=== PATIENT | female | born 1985 | race Caucasian/White ===

== ENCOUNTER 2017-08-30 13:21 | Inpatient (IN) | payer OTHER ==
[~2017-08-30] VITALS: Ht 165.1 cm; Wt 91.2 kg
[~2017-08-30 13:21] MED LIST: fentaNYL-PF 50 mCg/mL 2 mL Inj ONE
[2017-08-30] MEDS ORDERED: Lactated Ringer's 1,000 ML IV PRN (14:21)
[2017-08-30] MEDS ORDERED: Carboprost 250 mCg/mL Inj IM PRN (14:25)
[2017-08-30] MEDS ORDERED: Methylergonovine 0.2 mg/mL Inj IM PRN (14:25)
[2017-08-30] MEDS ORDERED: Sodium Chloride LOK Flush 10 mL Syringe IVFLUSH PRN (14:25)
[2017-08-30] MEDS ORDERED: Ondansetron 2 mg/mL 2 mL Inj IVPUSH PRN (14:25)
[2017-08-30] MEDS ORDERED: Oxytocin 10 Unit/mL Inj IM PRN (14:25)
[2017-08-30] MEDS ORDERED: Hemorrhage Kit, Post Partum XX ONE (14:25)
[2017-08-30] MEDS ORDERED: Oxytocin 30 Units/500 mL LR 30 UNITS in IV Premix 1 EACH IV PRN ×2 (14:25→18:50)
[2017-08-30] MEDS ORDERED: fentaNYL-PF 50 mCg/mL 2 mL Inj IVPUSH PRN (14:25)
[2017-08-30 14:42] LABS: Mean Corpuscular Hemoglobin 30.1 pg (27.0-35.0); Mean Corpuscular Volume 86.2 fL (81-100)
--- NOTE | 2017-08-30 17:33 | PCM.HPOB ---
Subjective Date of Service: Aug 30, 2017 Referring Provider: Admitting Physician: Mariusz Guerrero MD Primary Care Physician: Nopcp Attending Physician: Mariusz Guerrero MD Chief Complaint SROM at 20 weeks and 1 day. History of Present History of Present Illness This is a pleasant 32-year-old 001 at 40 weeks and 1 day with EDC of with dating by first trimester reportedly at 8 week ultrasound done at [facility] (ultrasound was not available for review in [facility] or web ambassador), who presented to [facility] with SROM with leakage of clear fluid at 11:15 on 2016. She was GBS negative. SVE was 2.0 cm, 50% effaced, and -2 with mid position and a Farmer score of 6 at 1332 on 08/30/2017. heart tones 150, moderate variability, positive accelerations, negative decelerations, category 1. Patient's OB history includes history of depression and a C- section secondary to breech in 2006. Patient wishes for trial of labor after . Competitions in this include a abnormal 1 hour glucose tolerance test at [facility] on 06/10/2017 with a normal three-hour glucose tolerance test. Patient had 2 episodes of -induced hypertension at 38 and 39 weeks. Patient has history of passing the blood clotted 8 weeks gestation however no other bleeding since that time. Patient had a prepregnancy BMI of 29 and a current BMI of 33. She is O+ antibody screen negative, GBS negative, rubella immune, Varicella immune, syphilis nonreactive, hepatitis B negative, HIV negative. Patient had a TB test that was nonreactive. Current allergies include morphine. Mother denied headaches, fever, sweats, nausea, vomiting, vision changes, slurred speech, right upper quadrant pain. OB History: (3), Para (1011) Past Medical History Obstetrical History: after breech 2006 History depression Gynecologic History: No Pap on record in [facility] per patient Pap in reportedly of 2016 that was normal. History 1 prior abnormal Pap with colposcopy that was normal, no history of HPV testing. History of depression. Medical History: No prior chronic medical history Surgical History: 2006 Breast reduction surgery 2012 Social History: Denies tobacco, rarely drank alcohol prior to , no drugs Hx Tobacco Use: No Hx Alcohol Use: Yes (rare and prior to ) Hx Substance Use: No Past Family History Family History Father with history of hypertension, pacemaker Living Arrangement: with Family Genetic Screening/Counseling Genetic Screening/Counseling: Unknown Baby father-had child w defect: No Review of Systems Constitutional: Y: Change of appitite, Chills, Fever, Pain Eyes: Denies: Blurred Vision, Double Vision Cardiovascular: Denies: Chest Pain, SOB while laying flat Respiratory: Denies: Cough, Pleuritic Chest Pain, SOB with Exertion Gastrointestinal: Denies: Abdominal Pain, Diarrhea, Nausea, Vomiting Genitourinary: Denies: Dysuria, Hematuria Musculoskeletal: Denies: Swelling Skin/Breasts: Denies: Discharge, Rash Skin: Denies: Bruising, Rash Neurological: Denies: Dizziness, Numbness, Seizures Psychologic: Denies: Agitation Medications Home medications vitamin Prevacid daily Allergy Coded Allergies: morphine (Verified Allergy, Unknown, HIVES, SKIN RASH, 08/30/17) Exam Vital Signs BP 135/83, HR 102, RR 16, T 36.7 Celsius, Exam FHT 150, moderate variability, positive accelerations, negative decelerations, category 1. Objective Oriented 3, no acute distress, speaking full sentences, and comfortably in bed. Constitutional: Well-developed, Well-nourished HEENT: Atraumatic, PERRLA, Scleral Anicteric, Mucous Membr Moist/[place] Lungs: Clear to Auscultation, Normal Air Movement Heart: Exam Unremarkable, Regular Rate/Rhythm, Normal S1, Normal S2, No Murmurs /Rubs/Gallops Abdomen: Gravid Lymphatic: Normal: Neck Palpation of Nodes Extremities: Pulses Palpable x4, Warm, No Edema Neurological/Psychiatric: Alert, Oriented X3, Cooperative, No Acute Distress Neuro: Grossly Neurologically Intact, Reflexes 2+, No Clonus noted, Strength at 5/5 x4 ext Labs/Diagnostics Maternal Blood Type: O (positive) Antibody Screen: negative Group B Strep Results: Negative Previous Infant with GBS: No Rubella: Immune Lab History: Positive for: Hx Chicken Pox, Negative for: Hx Gonorrhea, Hx HIV, Hx Herpes, Hx Syphilis OB Intrapartum Assessment/Plan Assessment # Admit for SROM at term 40 weeks and 1 day with TOLAC in a 32 y/o - Patient was GBS negative at 36 weeks - admit to labor and delivery to the service of Dr. Guerrero - Routine L&D orders - Expectant management # PIH at 38 and 39 weeks - We'll continue to monitor blood pressures and treat appropriately if elevated # History of prior secondary to breech # Pain Evaluation: Adequate Pain Control VTE Mechanical Devices: Intermittant Pneumatic CD Michael Manzanares DO Aug 30, 2017 17:33
--- NOTE | 2017-08-30 18:57 | PCM.PNOBIP ---
Subjective Date of Service Aug 30, 2017 Delivery plan: Vaginal Delivery after [facility] Visit History Interval intrapartum assessment. Subjective No contractions. Good movement. No other complaints. Good family support. Maternal Date/Time of ROM: Approximately 1130 AM 08/30/2017 Pain Management: No or Minimal Pain Gastrointestinal: Good Appetite, No N/V Activity: Ambulating in Room Only Labs Previously reviewed in H&P. No new labs since admission. Group B Strep Results: Negative Rubella: Immune Blood Type: O (positive) Labs Laboratory Tests 08/30/17 14:30: White Blood Count 10.7, Red Blood Count 4.12, Hemoglobin 12.4, Hematocrit 35.5, Mean Corpuscular Volume 86.2, Mean Corpuscular Hemoglobin 30.1, Mean Corpuscular Hemoglobin Concent 34.9, Red Cell Distribution Width 14.4, Platelet Count 156 Exam Vital Signs Vital Signs Contraction frequency in minutes: MVUs: Heart Tracings Heart Tones Baseline 145-150 bpm Heart Rate Variability: Moderate Heart Rate Accelleration: Present Heart Rate Deceleration: Absent Heart Rate Category: I Tocometry/IUPC Contraction frequency in minutes: No RUC MVUs: N/A Sterile Vaginal Exam 50-60%/FT/-2-3 Exam Lungs: Clear to Auscultation, Normal Air Movement Heart: Exam Unremarkable, Regular Rate/Rhythm, Normal S1, Normal S2, No Murmurs /Rubs/Gallops General: Alert, Oriented X3, Cooperative, No Acute Distress OB Intrapartum Assessment/Plan Assessment As before. Delayed onset of spontaneous labor; now 6 hours S/P SROM clear fluid. Intrapartum plan: Start pitocin (Option of continued expectant management discussed along with increasing risk of maternal/ infection. Alternatively , the initiation of Pitocin does expose the patient to higher risk of uterine rupture (08/1000 vs. 03/1000). After duiscussion of options, patient and her family want to move forward with pitocin induction/augmentation. Will start at .5 U and increase by 1 U at 30 minute intervals until adequate contractions achieved. OK for epidural if desired. Category 1 tracing of excellent quality using external monitors for now. Use of FSE and/or IUC discussed but ) Intrapartum Pain Management: May have epidural when desired Pain Evaluation: Adequate Pain Control VTE Mechanical Devices: Intermittant Pneumatic CD Cesar,Mariusz E MD Aug 30, 2017 6:57 pm
[2017-08-30] MEDS ORDERED: .Epic Conversion Completed XX PRN (19:30)
== END 2017-08-31 01:24 | disposition admitted as inpatient to this hospital (09) | DRG 951 ==
LOC: FBCO 13:21 → FBC 13:28
PROVIDERS: ADMIT Obstetrics & Gynecology; ATTEND Obstetrics & Gynecology
DX: R69 Illness, unspecified (principal)